=== PATIENT | female | born 1970 | race Caucasian/White ===

== ENCOUNTER 2021-02-25 13:44 | Outpatient (CLI) | payer BC, SELFPAY ==
--- NOTE | 2021-02-25 | ECHO_ITS ---
Patient Info Name: Jana Newsome Age: 50 years : 1970 Gender: Female Ht: 67 in Wt: 265 lbs BSA: 2.44 m2 HR: 81 bpm BP: 170 / 103 mmHg Exam Date: 02/25/2021 2:23 PM Exam Location: [facility] Patient Status: Outpatient Admit Date: 02/25/2021 Staff Ordering Physician: Tam Nava MD [employer] Machine Feeder: Jhonny Benoit, ALPHONSE, RT Attending Provider: Tam Nava MD Referring Physician: Elijah PARK; Exam Type: CA echo doppler color flow Study Info Indications Z12.31 - Encounter for screening mammogram for malignant neoplasm of breast Complete two-dimensional, color flow and Doppler transthoracic echocardiogram is performed. Strain analysis performed. Summary 1. Complete two-dimensional, color flow and Doppler transthoracic echocardiogram is performed. 2. Normal left ventricular size with mild concentric hypertrophy. There is good systolic function of all segments with an ejection fraction of 60% and no segmental wall motion abnormalities. Borderline diastolic dysfunction is present. The global longitudinal strain is-17% which is also borderline. 3. No significant valve disease. 4. Normal sinus rhythm. Left Ventricle Left ventricular chamber dimension is normal. Left ventricular systolic function is normal, estimated at 60-65%. There is mildly increased left ventricular wall thickness. Left ventricular septal wall motion is normal. The left ventricular diastolic function is normal. Global longitudinal strain is mildly elevated at Empty. Right Ventricle Right ventricular chamber dimension is normal. Right ventricular systolic function is normal. Left Atria Left atrial chamber dimension is normal. Right Atria Right atrial chamber dimension is normal. Aortic Valve The aortic valve is trileaflet. There is no aortic valve sclerosis. There is no aortic valve stenosis. There is no aortic valve regurgitation. Pulmonic Valve The pulmonic valve is normal. There is no pulmonic valve stenosis. There is no pulmonic regurgitation. Mitral Valve The mitral valve has normal leaflets. There is no mitral valve stenosis. There is no mitral valve regurgitation. Tricuspid Valve The tricuspid valve leaflets are normal. There is no significant tricuspid valve stenosis. There is no tricuspid valve regurgitation. No pulmonary hypertension, estimated pulmonary arterial systolic pressure is Empty. Pericardium/Pleural The pericardium appears normal. There is no pericardial effusion. Inferior Vena Cava Normal inferior vena cava with >50% collapse upon inspiration consistent with Empty right atrial pressure, Empty. Aorta The aortic root size at the sinus of Valsalva is normal. The prox ascending aorta size is normal. Left Ventricular Outflow Tract Name Value Normal LVOT 2D LVOT Diameter 2.0 cm LVOT Doppler LVOT Peak Gradient 7 mmHg LVOT Mean Gradient 4 mmHg LVOT VTI 24 cm LVOT VTI/AV VTI Ratio 0.8 LVOT Stroke Volume 75 ml
== END 2021-02-25 13:45 | disposition home or self-care (01) ==
PROVIDERS: Visit Provider Internal Medicine Hematology & Oncology
DX: C50.912 Malignant neoplasm of unspecified site of left female breast (principal); Z17.1 Estrogen receptor negative status [ER-]
CPT/HCPCS: 93306

== ENCOUNTER 2021-07-15 09:34 | Outpatient (CLI) | payer BC, SELFPAY ==
[2021-07-15 09:56] LABS: Basophils Absolute Auto 0.1 K/mm3 (0.0-0.1); Basophils Percent Auto 0.6 % (0.2-1.2); Eosinophils Absolute Auto 0.7 K/mm3 (0-0.3); Eosinophils Percent Auto 7.1 % (0-4.4); Hemoglobin 11.9 g/dL (12.0-15.0); Immature Granulocyte Absolute 0.05 K/mm3 (0.00-0.031); Immature Granulocyte Percent A 0.5 % (0-0.5); Lymphocytes Absolute Auto 1.31 K/mm3 (0.9-3.2); Lymphocytes Percent Auto 13.6 % (18.3-44.2); Mean Corpuscular HGB Conc 32.2 g/dl (32-36); Mean Corpuscular Hemoglobin 30.2 pg (26-34); Mean Corpuscular Volume 93.9 fl (80-100); Mean Platelet Volume 9.8 fl (7.4-10.4); Monocytes Absolute Auto 0.7 K/mm3 (0.1-0.6); Monocytes Percent Auto 7.1 % (2.6-8.5); Neutrophils Absolute Auto 6.8 K/mm3 (1.3-6.7); Neutrophils Percent Auto 71.1 % (45.5-73.1); Platelet Count Result 317 k/mm3 (150-375); Red Blood Count 3.94 M/mm3 (4.2-5.4); Red Cell Distribution Width 14.5 % (11.5-14.5); White Blood Count 9.6 K/mm3 (4.5-10.0)
[2021-07-15 10:17] LABS: Alanine Aminotransferase 35 U/L (6-35); Alkaline Phosphatase 95 U/L (38-126); Anion Gap 4 mmol/L (8-16); Aspartate Amino Transferase 34 U/L (14-36); Bilirubin,Total 0.2 mg/dL (0.2-1.3); Blood Urea Nitrogen 14 mg/dL (7-17); Calcium 9.2 mg/dL (8.4-10.2); Carbon Dioxide 25 mmol/L (22-30); Chloride 105 mmol/L (98-107); Estimated Glomerular Filt Rate > 60; Glucose 114 mg/dL (65-110); Potassium 4.2 mmol/L (3.4-5.0); Sodium 134 mmol/L (137-145)
== END 2021-07-15 09:35 | disposition home or self-care (01) ==
DX: C50.312 Malignant neoplasm of lower-inner quadrant of left female breast (principal); Z17.1 Estrogen receptor negative status [ER-]
CPT/HCPCS: 36415; 80053; 85025

== ENCOUNTER 2021-08-21 10:36 | Emergency (ER) | payer BC, SELFPAY ==
[2021-08-21 10:45] VITALS: BP 134/73; PULSE 115; RESP 20; TEMP 37.3; O2SAT 99
--- NOTE | 2021-08-21 11:40 | ED.URI ---
HPI - URI/Sore Throat General Chief Complaint: Upper Respiratory Infection Stated Complaint: SORE THROAT/COUGH Time Seen by Provider: 08/21/21 11:34 Source: patient Mode of arrival: ambulatory Limitations: no limitations History of Present Illness HPI Narrative: Patient presents today complaining of a 2-day history of sore throat with dry cough. Denies congestion, rhinorrhea, fever, shortness of breath, or any additional symptoms. She has been taking Benadryl without relief. She just finished chemotherapy for breast cancer and starts radiation treatments within the next 2 weeks. She has been vaccinated against COVID-19. She has not taken a home test. Related Data Home Medications Medication Instructions Recorded Confirmed albuterol 90 mcg/actuation aerosol 90 mcg inhalation DAILY PRN 02/14/21 06/19/21 inhaler Shortness Of Breath lamotrigine 150 mg tablet 150 mg PO HS 02/14/21 06/19/21 bupropion HCl 150 mg 24 hr tablet, 150 mg PO QAM 03/06/21 06/19/21 extended release (Wellbutrin XL) bupropion HCl 300 mg 24 hr tablet, 300 mg PO QAM 03/06/21 06/19/21 extended release (Wellbutrin XL) cholecalciferol (vitamin D3) 25 50 mcg PO BID 03/06/21 06/19/21 mcg (1,000 unit) capsule lithium carbonate 300 mg tablet 300 mg PO BID 03/06/21 06/19/21 loperamide 2 mg capsule 2 mg PO Q4H PRN diarrhea 03/06/21 06/19/21 melatonin 5 mg tablet 5 mg PO HS PRN Insomnia 03/06/21 06/19/21 multivitamin 1 tablet PO DAILY 03/06/21 06/19/21 omega-3 fatty acids 500 mg capsule 1,500 mg PO DAILY 03/06/21 06/19/21 ondansetron HCl 4 mg tablet 4 mg PO Q6H 03/06/21 06/19/21 vitamin B6-vitamin E-magnesium 1 tablet PO DAILY 03/06/21 06/19/21 tablet ferrous sulfate 325 mg (65 mg 325 mg PO DAILY 03/20/21 06/19/21 iron) tablet vitamin B12 0.5 mg-folic acid 1 mg 1 tablet PO DAILY 03/20/21 06/19/21 tablet dexamethasone 4 mg tablet 4 mg PO BID 04/17/21 06/19/21 Allergies Allergy/AdvReac Type Severity Reaction Status Date / Time No Known Allergies Allergy Verified 06/05/21 12:13 Review of Systems Review of Systems: CONSTITUTIONAL: Denies body aches, fever, chills, or sweats. EYES: Denies visual changes, redness, or discharge. ENT: Denies rhinorrhea, congestion, or otalgia.+ Sore throat CARDIOVASCULAR: Denies chest pain, palpitations, or edema. RESPIRATORY: Denies dyspnea.+ Cough GASTROINTESTINAL: Denies abdominal pain, nausea, vomiting, or diarrhea. GENITOURINARY: Denies dysuria or hematuria. SKIN: Denies rash, itching, or wounds. MUSCULOSKELETAL: Denies back pain, joint pain, or myalgia. NEUROLOGIC: Denies headache, numbness, tingling, or weakness. PSYCH: Denies depression or anxiety. [facility] Past Medical History Medical History (Updated 08/21/21 @ 12:18 by Adeline Francis, [facility], ) Anxiety Breast cancer Insomnia Obesity Social History Social History Smoking packs per day: 0.5 Smoking cigarettes per day: 10.0 Years smoked: 35 Smoking pack-years: 17.50 Smoking status: Current some day smoker Tobacco type: cigarettes Second hand tobacco smoke exposure: Yes Spiritual care concerns: No Comments At time of signature, I have reviewed and agree with nursing past medical, surgical, social and family history unless otherwise noted. Please see nursing chart for further information. There is no relevant family history pertinent to the presenting complaint Exam Narrative: GENERAL: Well-appearing, well-nourished, and in no acute distress. HEAD: Normocephalic, atraumatic. EYES: EOMI. No redness or drainage. Conjunctivae normal. ENT: Mucous membranes pink and moist. Nares clear. No rhinorrhea. TMs normal bilaterally. Throat normal. Uvula midline. NECK: Normal AROM. Supple. No lymphadenopathy. CHEST: No respiratory distress. Clear to auscultation. Harsh cough noted. HEART: Regular rate and rhythm. No murmur appreciated. Normal peripheral pulses. EXTREMITIES: Normal range of motion. No edema. SKIN: Warm, dry, no
== END 2021-08-21 12:28 | disposition home or self-care (01) ==
PROVIDERS: Emergency Provider Nurse Practitioner
DX: J06.9 Acute upper respiratory infection, unspecified (principal); Z20.822 Contact with and (suspected) exposure to COVID-19; F17.210 Nicotine dependence, cigarettes, uncomplicated; F41.9 Anxiety disorder, unspecified; Z85.3 Personal history of malignant neoplasm of breast; E66.9 Obesity, unspecified; G47.00 Insomnia, unspecified
CPT/HCPCS: 87081; 87426; 87880; 99213; C9803; G0463

== ENCOUNTER 2022-06-17 10:33 | Emergency (ER) | payer BC, SELFPAY ==
--- NOTE | ~2022-06-17 | XR_ITS ---
XR chest 2V 06/17/2022 11:00 Indication: 2 weeks of cough. History of breast cancer. Procedure: 2 view chest Comparison: No prior studies for comparison. Findings: Portacatheter tip in the SVC. No focal air space disease, pulmonary edema, pleural effusion or suspected pneumothorax. No acute osseous abnormality. Impression: 1: No acute cardiopulmonary disease. Reviewed, dictated and finalized at location L. Impression: 1: No acute cardiopulmonary disease.
[2022-06-17 10:44] VITALS: BP 147/94; PULSE 99; RESP 16; TEMP 36.8; O2SAT 99
--- NOTE | 2022-06-17 10:44 | ED.URI ---
HPI - URI/Sore Throat General Chief Complaint: Upper Respiratory Infection Stated Complaint: cough Time Seen by Provider: 06/17/22 10:45 Source: patient and RN notes reviewed Mode of arrival: ambulatory Limitations: no limitations History of Present Illness HPI Narrative: 51-year-old female presents concern for 2 week history of dry cough. Patient has history of breast cancer. She currently takes tamoxifen. She denies nasal congestion, rhinorrhea, sore throat, fever, aches, chills, sweats. She reports fatigue. She denies taking any medications for her symptoms MD elicited complaint: cough Related Data Home Medications Medication Instructions Recorded Confirmed lamotrigine 150 mg tablet 150 mg PO HS 02/14/21 06/17/22 bupropion HCl 150 mg 24 hr tablet, 150 mg PO QAM 03/06/21 06/17/22 extended release (Wellbutrin XL) cholecalciferol (vitamin D3) 25 50 mcg PO BID 03/06/21 06/17/22 mcg (1,000 unit) capsule lithium carbonate 300 mg tablet 300 mg PO BID 03/06/21 06/17/22 melatonin 5 mg tablet 5 mg PO HS PRN Insomnia 03/06/21 06/17/22 multivitamin 1 tablet PO DAILY 03/06/21 06/17/22 omega-3 fatty acids 500 mg capsule 1,500 mg PO DAILY 03/06/21 06/17/22 vitamin B6-vitamin E-magnesium 1 tablet PO DAILY 03/06/21 06/17/22 tablet ferrous sulfate 325 mg (65 mg 325 mg PO DAILY 03/20/21 06/17/22 iron) tablet vitamin B12 0.5 mg-folic acid 1 mg 1 tablet PO DAILY 03/20/21 06/17/22 tablet tamoxifen 20 mg tablet 20 mg PO DAILY 06/17/22 06/17/22 vortioxetine 5 mg tablet 5 mg PO DIRECTED 06/17/22 06/17/22 (Trintellix) Allergies Allergy/AdvReac Type Severity Reaction Status Date / Time No Known Allergies Allergy Verified 06/17/22 10:50 Review of Systems Review of Systems: CONSTITUTIONAL: Denies malaise, chills, sweats, or fever. EYES: Denies visual changes, redness, or discharge. ENT: Denies rhinorrhea, congestion, sinus pain, otalgia and sore throat. CARDIOVASCULAR: Denies chest pain, palpitations, or edema. RESPIRATORY: Reports cough. Denies dyspnea. GASTROINTESTINAL: Denies abdominal pain, nausea, vomiting, diarrhea SKIN: Denies rash or itching. MUSCULOSKELETAL: Denies myalgia. NEUROLOGIC: Denies headache. All systems reviewed & are unremarkable except as noted in HPI and below PMFSH Past Medical History Medical History (Updated 06/17/22 @ 11:11 by Christine Merrill NP) Anxiety Breast cancer Insomnia Obesity Social History Social History Smoking packs per day: 0.5 Smoking cigarettes per day: 10.0 Years smoked: 35 Smoking pack-years: 17.50 Smoking status: Current some day smoker Tobacco type: cigarettes Second hand tobacco smoke exposure: Yes Spiritual care concerns: No Comments At time of signature, agree with nursing past medical, surgical, social and family history. There is no relevant family history pertinent to the presenting complaint Exam Narrative: GENERAL: Well-appearing, well-nourished, and in no acute distress. HEAD: Normocephalic EYES: PERRLA, conjunctivae clear ENT: Nares clear. Mucous membranes moist. TM pearly ramirez with sharp light reflex bilaterally; no tragal tenderness. Oropharynx not erythematous without lesions. Tonsils not enlarged and without exudate, no drooling, no hoarseness, no trismus, uvula midline. NECK: Supple. No lymphadenopathy CHEST: Clear to auscultation, breath sounds equal. No wheezing, rhonchi, rales, or stridor. No respiratory distress, speaks in full sentences. HEART: Regular rate and rhythm. No murmur heard. SKIN: Warm, dry, no rash. NEURO: Alert and oriented x3. PSYCH: Normal mood and affect Course Course Emergency Course: Patient is aware of diagnosis, understands and agrees to treatment plan. Anticipatory guidance given. Patient agrees to follow-up as directed and is aware of reasons to seek care at the emergency department. Portions of this record may have been created with voice recognition software Level of Care: [facility]
== END 2022-06-17 11:15 | disposition home or self-care (01) ==
PROVIDERS: Emergency Provider Nurse Practitioner
DX: J40 Bronchitis, not specified as acute or chronic (principal); F17.210 Nicotine dependence, cigarettes, uncomplicated; Z85.3 Personal history of malignant neoplasm of breast; F41.9 Anxiety disorder, unspecified; E66.9 Obesity, unspecified; Z68.41 Body mass index [BMI] 40.0-44.9, adult
CPT/HCPCS: 71046; 99213; G0463

== ENCOUNTER 2023-02-26 06:20 | Emergency (ER) | payer BC, SELFPAY ==
[2023-02-26] VITALS (12 sets, daily range): BP systolic 145–181; BP diastolic 67–96; PULSE 78–116; RESP 13–22; TEMP 36.6–36.9; O2SAT 96–100
--- NOTE | ~2023-02-26 | US_ITS ---
EXAMINATION: US abdomen limited DATE: 02/26/2023 08:45 INDICATION: Pancreatitis TECHNIQUE: Multiple grayscale and Doppler ultrasound images of the abdomen were obtained. COMPARISON: CT from today FINDINGS: Bowel gas obscures visualization of the pancreas. The visualized portions of the pancreas a re unremarkable. The pancreatic head mass seen on today's CT is not well demonstrated. There is a 9 m m hypoechoic lesion of the liver and the right hepatic lobe. The liver is otherwise normal with boo l echogenicity and echotexture. No surface nodularity. Normal hepatopetal flow in the main portal vei n. The gallbladder is normal with no abnormal wall thickening, pericholecystic fluid or stones. The n ormal common bile duct measures 5 mm. There was no sonographic Benoit sign. IMPRESSION: 1. Normal sonographic study of the gallbladder. 2. 5 mm hypoechoic lesion of the right hepatic lobe, possibly metastatic disease. Reviewed, dictated and finalized at location D. R OPT[employer] SUPERVISOR IMPRESSION: 1. Normal sonographic study of the gallbladder. 2. 5 mm hypoechoic lesion of the right hepatic lobe, possibly metastatic diseas e.
--- NOTE | ~2023-02-26 | CT_ITS ---
CT of the Abdomen and Pelvis: Indication: Constipated, metastatic breast cancer Technique: 2.5 mm axial scans were obtained through the abdomen and pelvis following intravenous adm inistration of 100 cc of Omnipaque 350. Dose reduction technique was used on this scan by utilizing a utomated exposure control and iterative reconstruction technique. The dose-length product (DLP) was 1 522.34 mGy-cm. Findings: Scans through the lung bases demonstrate irregular 2.3 cm right basilar pulmonary nodule ( axial image 18). There is a separate probable sessile pleural-based mass the right lung base measurin g 2.7 x 1.1 cm (axial image 17).. The liver, spleen, gallbladder, right adrenal gland, and left kidney are within normal limits. There is a 2 cm left adrenal nodule, indeterminate. There are 2 hypodense, noncystic right renal lesions (a xial image 90, 80), indeterminate. There is a 3.4 cm irregular hypodense mass the pancreatic head (ax ial image 80). There is peripancreatic fluid and inflammatory stranding, consistent with acute pancre atitis. No evidence of aortic aneurysm. No lymphadenopathy. No bowel obstruction or bowel wall thickening. There is no evidence to suggest acute appendicitis. Images through the pelvis were performed. Urinary bladder unremarkable. No pelvic mass seen. No pelvi c ascites. Impression: 3.4 cm hypodense mass at the pancreatic head. Diagnostic considerations include pancreatic adenocarci noma versus possibly metastatic lesion. Acute pancreatitis. 2 cm left adrenal nodule, indeterminate, but suspicious for metastatic lesion given history and afore mentioned findings. 2.3 cm right basilar pulmonary nodule and additional 2.7 x 1.1 cm pleural-based nodule at the right l juanita base. These are compatible with metastatic disease. Primary source somewhat unclear given reporte d history of metastatic breast cancer as well as a possible primary pancreatic lesion on this exam. C orrelation with any prior exams and history would be advised. Consider tissue sampling to establish a histologic diagnosis. 2 noncystic hypodense right renal lesions. Metastatic lesions are consideration. Reviewed, dictated and finalized at location M. AL PHOTOGRAPHER Impression: 3.4 cm hypodense mass at the pancreatic head. Diagnostic considerations include pancreatic adenocarcinoma versus possibly metastatic lesion. Acute pancreatitis. 2 cm left adrenal nodule, indeterminate, but suspicious for metastatic lesion g iven history and aforementioned findings. 2.3 cm right basilar pulmonary nodule and additional 2.7 x 1.1 cm pleural-based nodule at the right lung base. These are compatible with metastatic disease. P rimary source somewhat unclear given reported history of metastatic breast canc er as well as a possible primary pancreatic lesion on this exam. Correlation wi th any prior exams and history would be advised. Consider tissue sampling to es tablish a histologic diagnosis. 2 noncystic hypodense right renal lesions. Metastatic lesions are consideration .
[2023-02-26 07:03] LABS: Basophils Percent Auto 0.1 % (0.2-1.2); Eosinophils Absolute Auto 0.1 K/mm3 (0-0.3); Eosinophils Percent Auto 0.5 % (0-4.4); Hematocrit 40.9 % (37.0-47.0); Hemoglobin 13.8 g/dL (12.0-15.0); Immature Granulocyte Absolute 0.16 K/mm3 (0.00-0.031); Immature Granulocyte Percent A 0.7 % (0-0.5); Lymphocytes Absolute Auto 2.85 K/mm3 (0.9-3.2); Lymphocytes Percent Auto 11.9 % (18.3-44.2); Mean Corpuscular HGB Conc 33.7 g/dl (32-36); Mean Corpuscular Hemoglobin 29.7 pg (26-34); Mean Corpuscular Volume 88.1 fl (80-100); Mean Platelet Volume 9.8 fl (7.4-10.4); Monocytes Absolute Auto 1.9 K/mm3 (0.1-0.6); Monocytes Percent Auto 7.8 % (2.6-8.5); Neutrophils Absolute Auto 18.9 K/mm3 (1.3-6.7); Platelet Count Result 348 k/mm3 (150-375); Red Blood Count 4.64 M/mm3 (4.2-5.4); White Blood Count 23.9 K/mm3 (4.5-10.0)
--- NOTE | 2023-02-26 07:07 | ED.NAVMDI ---
HPI - Nausea/Vomiting/Diarrhea General Chief complaint: Nausea/Vomiting/Diarrhea Stated complaint: constipation Time Seen by Provider: 02/26/23 06:58 Source: patient and family ( Mother) Limitations: no limitations History of Present Illness HPI Narrative: this is a 52-year-old female with metastatic breast cancer currently undergoing radiation therapy to her brain who presents with constipation and nausea. Her nausea became more intense last evening and has persisted despite the use of Zofran and famotidine. It was also accompanied with vomiting. She denies milton abdominal pain. She has no sensation or feeling like she needs to have a bowel movement. She denies passing any flatus. She continues to have appetite however. Her radiation treatments have been daily including her last treatment yesterday she has undergone a total of 5 in the past week when she was diagnosed with recurrence of her breast cancer which was previously thought to be in remission but was diagnosed to be reemerge and with metastases while she was hospitalized at [facility] recently. she does have a prescription for oxycodone p.r.n. but she has only taken this 2 or 3 times in the past week. She is on a bowel regimen that includes senna and Metamucil and other stool softeners. She even trialed a rectal suppository overnight but was unable to produce a bowel movement. LBM last Thursday. Related Data Home Medications Medication Instructions Recorded Confirmed lamotrigine 150 mg tablet 150 mg PO HS 02/14/21 06/17/22 bupropion HCl 150 mg 24 hr tablet, 150 mg PO QAM 03/06/21 06/17/22 extended release (Wellbutrin XL) cholecalciferol (vitamin D3) 25 50 mcg PO BID 03/06/21 06/17/22 mcg (1,000 unit) capsule lithium carbonate 300 mg tablet 300 mg PO BID 03/06/21 06/17/22 melatonin 5 mg tablet 5 mg PO HS PRN Insomnia 03/06/21 06/17/22 multivitamin 1 tablet PO DAILY 03/06/21 06/17/22 omega-3 fatty acids 500 mg capsule 1,500 mg PO DAILY 03/06/21 06/17/22 vitamin B6-vitamin E-magnesium 1 tablet PO DAILY 03/06/21 06/17/22 tablet ferrous sulfate 325 mg (65 mg 325 mg PO DAILY 03/20/21 06/17/22 iron) tablet vitamin B12 0.5 mg-folic acid 1 mg 1 tablet PO DAILY 03/20/21 06/17/22 tablet tamoxifen 20 mg tablet 20 mg PO DAILY 06/17/22 06/17/22 vortioxetine 5 mg tablet 5 mg PO DIRECTED 06/17/22 06/17/22 (Trintellix) Allergies Allergy/AdvReac Type Severity Reaction Status Date / Time No Known Allergies Allergy Verified 06/17/22 10:50 [facility] Past Medical History Medical History (Updated 02/27/23 @ 00:00 by Background Daemon) Anxiety Breast cancer Insomnia Metastasis to brain Obesity Social History Social History Smoking packs per day: 0.5 Smoking cigarettes per day: 10.0 Years smoked: 35 Smoking pack-years: 17.50 Smoking status: Current some day smoker Tobacco type: cigarettes Second hand tobacco smoke exposure: Yes Spiritual care concerns: No Exam Narrative: GENERAL: Well-appearing, well-nourished, and in no acute distress. HEAD: Normocephalic, atraumatic. EYES: Non injected, non icteric ENT: Nares clear, no rhinorrhea or epistaxis. Tacky mucous membranes. NECK: Supple. CHEST: Speaks in full sentences. No respiratory distress. HEART: Tachycardic rate and rhythm. . ABDOMEN: Obese, distended but Soft. Slight tenderness to palpation at the epigastrium without rigidity or guarding. Striae over abdomen. Ecchymosis in RLQ (notes she has been receiving subQ injection unknown what) EXTREMITIES: Normal range of motion. No edema. SKIN: Warm, dry, no rash. NEURO: No focal deficits. Alert and oriented x3. PSYCH: Normal mood and affect. Course Vital Signs Vital signs: Vital Signs Temperature 98.4 F 02/26/23 06:25 Pulse Rate 113 H 02/26/23 06:25 Respiratory Rate 20 02/26/23 06:25 Blood Pressure 148/89 H 02/26/23 06:25 Pulse Oximetry 98 02/26/23 06:25 Oxygen Delivery Room Air 02/26/23 06:25
[2023-02-26 07:13] LABS: Alanine Aminotransferase 23 U/L (6-35); Albumin Level 3.9 g/dL (3.5-5.1); Alkaline Phosphatase 114 U/L (38-126); Anion Gap 10 mmol/L (8-16); Aspartate Amino Transferase 19 U/L (14-36); Bilirubin,Total 0.5 mg/dL (0.2-1.3); Blood Urea Nitrogen 19 mg/dL (7-17); Calcium 9.3 mg/dL (8.4-10.2); Carbon Dioxide 25 mmol/L (22-30); Chloride 99 mmol/L (98-107); Estimated CRCL calculation 96 ml/min; Estimated Glomerular Filt Rate > 60; Glucose 141 mg/dL (65-110); Sodium 134 mmol/L (137-145)
[2023-02-26] MEDS: LACTATED RINGERS 1,000 ML 999 ML IV CONT (07:18)
[2023-02-26] MEDS: SODIUM CHLORIDE 0.9% IV 1,000 ML 999 ML IV CONT (07:19)
[2023-02-26] MEDS: PROCHLORPERAZINE EDISYLATE 10 MG/2 ML VIAL IV PUSH (07:20)
[2023-02-26 07:46] LABS: Lipase 5345 U/L (23-300)
[2023-02-26 07:55] LABS: Appearance Urine Clear (Clear); Bacteria Urine None Seen /hpf; Bilirubin Urine Negative (Negative); Blood Urine Negative (Negative); Color Urine Yellow (Yellow); Glucose Urine UA Negative (Negative); Ketones Urine Negative (Negative); Leukocyte Esterase Ur Negative LEU/UL (Negative); Nitrate Urine Negative (Negative); Protein Urine 1+ mg/dL (Negative); RBC Urine 0-2 /hpf (0-2); Specific Grav Ur 1.026 (1.001-1.035); Squamous Epithelial Cell Urine Occasional /hpf (Few); Urobilinogen Urine 0.2 mg/dL (<2.0); WBC Urine 0-5 /hpf
[2023-02-26 08:00] LABS: Add Urine Microscopic? YES
--- NOTE | 2023-02-26 08:16 | PC.NURSE ---
Pt in CT scan via w/c at this time. Mother remains at bedside.
[2023-02-26] MEDS: HALOPERIDOL LACTATE 5 MG/ML VIAL 2.5 MG IV PUSH (08:55)
[2023-02-26] MEDS: BISACODYL 10 MG SUPPOSITORY RECTAL (11:04)
[2023-02-26] MEDS: LACTATED RINGERS 1,000 ML 150 ML IV CONT (13:10)
== END 2023-02-26 16:51 | disposition short-term general hospital (02) ==
LOC: ANHED 07:51
PROVIDERS: Student in an Organized Health Care Education/Training Program; Emergency Provider Student in an Organized Health Care Education/Training Program
DX: K85.90 Acute pancreatitis without necrosis or infection, unspecified (principal); E87.1 Hypo-osmolality and hyponatremia; D72.829 Elevated white blood cell count, unspecified; R73.9 Hyperglycemia, unspecified; C50.919 Malignant neoplasm of unspecified site of unspecified female breast; C79.31 Secondary malignant neoplasm of brain; N28.9 Disorder of kidney and ureter, unspecified; K86.89 Other specified diseases of pancreas; R91.8 Other nonspecific abnormal finding of lung field
CPT/HCPCS: 36415; 74177; 76705; 80053; 81001; 83690; 85025; 96361; 96374; 96375; 99284; A9270; J0780; J1630; J7030; J7120; Q9967

== ENCOUNTER 2023-03-12 10:07 | Outpatient (CLI) | payer BC, SELFPAY ==
[2023-03-12 10:24] LABS: Kit Draw Collected
== END 2023-03-12 10:08 | disposition home or self-care (01) ==
LOC: ANHLAB 10:09
PROVIDERS: Visit Provider Internal Medicine Hematology & Oncology
DX: C50.912 Malignant neoplasm of unspecified site of left female breast (principal); Z17.1 Estrogen receptor negative status [ER-]
CPT/HCPCS: 36415

== ENCOUNTER 2023-03-23 01:13 | Day surgery (SDC) | payer BC, SELFPAY ==
[2023-03-17 12:38] VITALS: BMI 42.9
--- NOTE | 2023-03-17 12:47 | PC.NURSE ---
Report to the Outpatient Waiting Room, entrance under the green pavilion located off [facility], at time 0900 on date 03/23/23. Planned Procedure Time: 1100. Time changes happen often and if your time is changed the preop area will call you the afternoon before. - You and your visitor will be asked to self-screen and do not enter if you have any COVID symptoms. - A mask is optional within the hospital at this time. Patients may have clear liquids (water, carbonated beverages, clear teas, apple juice) until 3 hours prior to surgery with a maximum of 20 ounces. - No food from midnight until time of surgery Take the following medications with a SIP of water the morning of surgery: LORAZEPAM, DEXAMETHASONE, METOPROLOL, LITHIUM, AMLODIPINE, LAMOTRIGINE, TRINTELLIX DO NOT STOP ANY OF YOUR OTHER PRESCRIPTION MEDICATIONS PRIOR TO SURGERY ?EXCEPT THE FOLLOWING Medications to discontinue per physician: N/A Date to take last dose: N/A Please no make-up, nail french, hairspray, perfume, deodorant, or body powder the day of surgery. No jewelry (including any body piercings) or valuables the day of surgery, leave them at home. Please take a shower or bath the night before, or the morning of, surgery with an antibacterial soap. Wear comfortable, loose fitting clothing. - Jewelry must be removed prior to entering the operating room. Rings and piercings that are not removed may be cut off. - The hospital will not accept responsibility for valuables. - Please leave all valuables, including medications, at home the day of surgery. If you are going home after surgery, a licensed cattle driver must drive you home. - NO public transportation without another adult if you receive anesthesia. - We recommend that an adult stay with you for 24 hours following discharge. - We also recommend that you do not drive, make important decision, drink alcoholic beverages, or take any drugs that were not prescribed by your health care provider for at least 24 hours after your discharge time. Follow any additional instructions given to you from your surgeon. If you or anyone in your household have experienced Covid symptoms in the past week, please notify your surgeon or the nurse liaison at the phone number below for possible testing. Telephone instructions given to PT & MOTHER and asked if any additional questions and then verbalized understanding. Patient advised to call surgeon office or pre surgery nurse liaison [phone] if any additional questions.
[2023-03-23] VITALS (7 sets, daily range): BP systolic 128–157; BP diastolic 73–91; PULSE 93–105; RESP 12–20; TEMP 35.8–36.1; O2SAT 97–100
--- NOTE | ~2023-03-23 | XR_ITS ---
XR chest port-a-cath/central DATE: 03/23/2023 12:22 INDICATION: Port-A-Cath insertion TECHNIQUE: Portable AP chest on 03/23/2023 1221 hours COMPARISON: June 17, 2022 2 view chest FINDINGS: Right subclavian Port-A-Cath catheter tip overlying upper right atrium. Surgical clips overlie left breast and left axillary area. Heart size is likely within normal range considering magnification associated with AP projection. No hilar or mediastinal enlargement. There is moderate elevation the right leaf of the diaphragm. The lungs appear clear of infiltrate or consolidation. No pneumothorax is evident. IMPRESSION: Right subclavian Port-A-Cath catheter tip overlies upper right atrium Moderate elevation right diaphragm No active cardiopulmonary disease is evident Reviewed, dictated and finalized at [facility]. Reviewed, dictated and finalized at location [facility]. N [facility] [employer] IMPRESSION: Right subclavian Port-A-Cath catheter tip overlies upper right atri um Moderate elevation right diaphragm No active cardiopulmonary disease is evident
--- NOTE | ~2023-03-23 | XR_ITS ---
EXAMINATION: XR fl guide central line place INDICATION: Port-A-Cath insertion TECHNIQUE: Three intraoperative fluoroscopic images are submitted for review. Total fluoroscopic time was 15.0 seconds COMPARISON: None available FINDINGS: Fluoroscopic images demonstrate a right subclavian Port-A-Cath insertion ending at the supe rior cavoatrial junction. Please refer to procedure note for full details. IMPRESSION: 1. Please refer to procedure note for full details. Reviewed, dictated and finalized at location [facility]. STRIAL MACHINE OPERATOR
--- NOTE | 2023-03-23 08:47 | PM.IMHP ---
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 She previously underwent left breast lumpectomy and rad tx to left breast. She recently underwent 20 rad tx to her brain mets. She has some chronic nausea due to her metastatic dz and rad tx. She is to undergo chemotherapy tx and now presents for placement of another portacatheter for chemo tx. She had prior right side port which was removed about 8 months ago. No problems with that old port. Review of Systems Review of Systems: The remainder of the review of systems to include constitutional, HEENT, cardiovascular, respiratory, GI, , integumentary, musculoskeletal, endocrine, immunologic, hematologic, psychiatric, and neurologic are all negative except for which is mentioned above in the HPI. [facility] Past Medical History Medical History Anxiety Breast cancer Insomnia Metastasis to brain Obesity Social History Social History Smoking packs per day: 0.5 Smoking cigarettes per day: 10.0 Years smoked: 30 Smoking pack-years: 15.00 Smoking status: Former smoker Tobacco type: cigarettes Second hand tobacco smoke exposure: Yes Smoking end date: 11/07/22 Alcohol intake: never Substance use: never Substance use type: does not use Living arrangements: with family Spiritual care concerns: No Meds Home Medications and Allergies Home Medications Medication Instructions Recorded Confirmed Type lamotrigine 150 mg tablet 150 mg PO HS 02/14/21 03/17/23 History tamoxifen 20 mg tablet 20 mg PO DAILY 06/17/22 03/17/23 History amlodipine 10 mg tablet 10 mg PO DAILY 03/17/23 03/17/23 History dexamethasone 1 mg tablet 2 mg PO BID 03/17/23 03/17/23 History famotidine 20 mg tablet 20 mg PO BID 03/17/23 03/17/23 History lamotrigine 25 mg tablet 50 mg PO DAILY 03/17/23 03/17/23 History lithium carbonate 150 mg capsule 150 mg PO BID 03/17/23 03/17/23 History lorazepam 0.5 mg tablet 0.5 mg PO TID 03/17/23 03/17/23 History losartan 50 mg tablet 50 mg PO DAILY 03/17/23 03/17/23 History melatonin 10 mg tablet 10 mg PO HS 03/17/23 03/17/23 History metoprolol tartrate 25 mg tablet 25 mg PO BID 03/17/23 03/17/23 History ondansetron 4 mg disintegrating 8 mg translingual Q8H 03/17/23 03/20/23 History tablet sennosides 8.6 mg-docusate sodium 1 tab-cap PO BID 03/17/23 03/17/23 History 50 mg tablet (Senna-S) vortioxetine 10 mg tablet 10 mg PO DAILY 03/17/23 03/17/23 History (Trintellix) scopolamine base 1 mg over 3 days 1 patch transdermal Q3D 03/20/23 03/20/23 History transdermal patch Allergies Allergy/AdvReac Type Severity Reaction Status Date / Time No Known Allergies Allergy Verified 03/23/23 09:10 Exam Const: General: comfortable and no acute distress HENMT: Ears: TM's normal bilaterally Face/Nose/Sinus: Normal nares present Mouth: Yes moist mucous membranes Eyes: General: appearance normal, both eyes and all related structures Sclera: sclerae normal Pupils: Equal, round and reactive pupils present EOM: EOMs intact bilaterally Neck: Neck: supple and no JVD Chest: Other: Old scar right upper anterior chest from old port. No redness or drainage. Resp: Effort & Inspection: normal respiratory effort Auscultation: clear to auscultation bilaterally Cardio: Rate: regular rate Rhythm: regular rhythm GI: GI Palp: Yes Soft to palpation, No Firmness to palpation present (GI), No Tenderness to palpation present (GI), No Guarding due to palpation present (GI) and No Hernia present Skin: General skin exam: normal color and no rashes or lesions noted Neuro: General: gait normal Speech: normal speech Motor exam (neuro): 5/5 motor strength present throughout Sensory Exam: nor
[2023-03-23 10:03] LABS: Lithium 0.4 mmol/L (0.6-1.2)
--- NOTE | 2023-03-23 10:04 | WPDANESEPPF ---
Anes - Initial Pre Proc Eval Procedure: Operation Date: 03/23/23 11:00 Proposed Procedures p Insertion Berta Cath - Chance Machuca MD Date/Time: 03/23/23 10:04 Surgeon: Chance Machuca MD Pre Op Diagnosis: malignant neoplasm left breast, brain metastasis Patient Data Age: 52 Gender: F Height: 1.68 m Weight: 115 kg Last Vital Signs Temp 96.5 F L 03/23/23 09:57 Pulse 105 H 03/23/23 09:57 Resp 20 03/23/23 09:57 BP 128/77 03/23/23 09:57 Pulse Ox 97 03/23/23 09:57 O2 Del Method Room Air 03/23/23 09:57 Allergies Allergy/AdvReac Type Severity Reaction Status Date / Time No Known Allergies Allergy Verified 03/23/23 09:10 Home Medications Medication Instructions Recorded Confirmed Type lamotrigine 150 mg tablet 150 mg PO HS 02/14/21 03/17/23 History tamoxifen 20 mg tablet 20 mg PO DAILY 06/17/22 03/17/23 History amlodipine 10 mg tablet 10 mg PO DAILY 03/17/23 03/17/23 History dexamethasone 1 mg tablet 2 mg PO BID 03/17/23 03/17/23 History famotidine 20 mg tablet 20 mg PO BID 03/17/23 03/17/23 History lamotrigine 25 mg tablet 50 mg PO DAILY 03/17/23 03/17/23 History lithium carbonate 150 mg capsule 150 mg PO BID 03/17/23 03/17/23 History lorazepam 0.5 mg tablet 0.5 mg PO TID 03/17/23 03/17/23 History losartan 50 mg tablet 50 mg PO DAILY 03/17/23 03/17/23 History melatonin 10 mg tablet 10 mg PO HS 03/17/23 03/17/23 History metoprolol tartrate 25 mg tablet 25 mg PO BID 03/17/23 03/17/23 History ondansetron 4 mg disintegrating 8 mg translingual Q8H 03/17/23 03/20/23 History tablet sennosides 8.6 mg-docusate sodium 1 tab-cap PO BID 03/17/23 03/17/23 History 50 mg tablet (Senna-S) vortioxetine 10 mg tablet 10 mg PO DAILY 03/17/23 03/17/23 History (Trintellix) scopolamine base 1 mg over 3 days 1 patch transdermal Q3D 03/20/23 03/20/23 History transdermal patch Laboratory Tests 03/23/23 09:47 PT Pending INR Pending APTT Pending [place] 0.4 L mmol/L (0.6-1.2) Patient hx anesthesia problems: post op nausea/vomiting (has N/V now and all the time; has scopolamine and uses Zofran ODT daily) Family hx anesthesia problems: none Results Review: All pre-operative results and documents have been reviewed as part of the pre-operative evaluation. [facility] Past Medical History Medical History (Updated 03/23/23 @ 08:49 by Chance Machuca MD) Anxiety Breast cancer Insomnia Metastasis to brain Obesity Social History Social History Smoking packs per day: 0.5 Smoking cigarettes per day: 10.0 Years smoked: 30 Smoking pack-years: 15.00 Smoking status: Former smoker Tobacco type: cigarettes Second hand tobacco smoke exposure: Yes Smoking end date: 11/07/22 Alcohol intake: never Substance use: never Substance use type: does not use Living arrangements: with family Spiritual care concerns: No Anes - Eval Final PreProcedure Day of Procedure 03/23/23 10:04 Patient weight: morbidly obese Heart: regular rate and rhythm Lungs: clear to auscultation Airway: Mallampati scale class III Neurological: alert and oriented Last oral intake: >/= 8 hours ASA classification: III Emergent: no Anesthetic plan: proceed Anesthesia type and monitoring: general ETT and standard monitoring Results Review: All pre-operative results and documents have been reviewed as part of the pre-operative evaluation. Informed Consent: The patient's anesthetic plan and its attendant risks and benefits were discussed with the patient/family/POA. Questions were solicited and answers provided to the satisfaction of the patient/family/POA.
[2023-03-23] MEDS: LACTATED RINGERS 1,000 ML 30 ML IV CONT (10:32)
[2023-03-23] MEDS: diphenhydrAMINE HCl INJ 50 MG/ML VIAL 12.5 MG IV PUSH (10:33)
--- NOTE | 2023-03-23 10:52 | WPDHPUPDATE1 ---
History and Physical Update Update Date/Time: 03/23/23 10:52 History and Physical has been reviewed, including an updated exam of the patient. There are NO changes in the patient's condition. Risks, benefits, and alternatives have been discussed and questions answered. Patient agrees to proceed with procedure.
[2023-03-23] MEDS: ceFAZolin 2 GM/D5W 50 ML 2 GM/50 ML BAG IVPB (11:01)
[2023-03-23 11:09] LABS: Prothrombin Time 14.1 Seconds (11.1-14.7)
[2023-03-23 11:10] LABS: Partial Thromboplastin Time 26.3 SECONDS (22.3-36.8)
[2023-03-23] MEDS: LIDO 1%/EPINEPHRINE 1:100,000 50 ML VIAL INFILTRATE (11:24)
[2023-03-23] MEDS: HEPARIN SODIUM 1,000 UNITS/ML VIAL 1000 UNITS IV PUSH (11:24)
[2023-03-23] MEDS: HEPARIN SODIUM 5,000 UNITS/ML VIAL 5000 UNITS IRRIGATION (11:25)
--- NOTE | 2023-03-23 12:09 | W.PM.PROC2 ---
Procedure Note - Detailed Date of Procedure 03/23/23 Pre-op Diagnosis malignant neoplasm left breast, brain metastasis Post-op Diagnosis Same Procedure Performed Placement of right subclavian vein single-lumen port a catheter with intraoperative fluoroscopy Surgeon Chance Machuca MD Editorial Assistant HAMMAD Bhatt Anesthesia General Indications Patient is a 52-year-old female who unfortunately has left breast cancer which is now metastasized to her brain. She had undergone his initial course chemotherapy and after radiation treatments to her brain Mets she now presents for placement of another lora catheter for continued chemotherapy treatments. Findings None significant Description of Procedure After informed consent was obtained patient brought to the operating room she was placed supine position and then general endotracheal anesthesia was administered. Bilateral upper anterior neck and chest was then prepped and draped usual sterile fashion. Patient had previous port catheter placed in the right upper chest area there was a scar in that area. I anesthetized that area with 1% lidocaine mixed with 0.5% Marcaine 50 50 mixture with epinephrine and then excised out the old scar utilizing scalp electrocautery dissection. I then dissected down through the subcutaneous tissues until I reached the anterior pectoralis fascia and then dissected inferiorly to the incision to create subcutaneous port pocket. I then placed the patient head-down Trendelenburg position and then through this incision I then used a long 18gauge spinal needle to cannulate the right subclavian vein on the 1st pass without any difficulty. There was prompt return of dark venous appearing blood. A guidewire was advanced through the needle into the right subclavian vein subsequent down into the right atrium of the heart. Intraoperative fluoroscopy was used to visualize the tip of the guidewire which was in the correct downward position. I then advanced a dilator and breakaway sheath over the guidewire and then removed the guidewire and dilator removing leaving the sheath in place. I then advanced a single-lumen 9.6 Urdu catheter through the sheath into the right subclavian vein subsequent down into the right atrium of the heart. The sheath was then torn away leaving the catheter in place. Utilizing intraoperative fluoroscopy 1 last time I then pulled back on the catheter externals the chest wall to the tip of the catheter was in the distal superior vena cava. The catheter was then cut to the appropriate length at the skin level and attached to the Smart Port. The Smart port was then secured in subcu port pocket utilizing 3-0 Prolene sutures on 3 sides. The incision was then irrigated sterile saline solution hemostasis was good. I then accessed the port utilize a Polk needle and it aspirated blood easily. It was then flushed with Hep-Lock saline solution. I then close incision utilizing interrupted 3-0 Vicryl sutures in the subcutaneous tissues. The skin edges were then approximated utilizing a running subcuticular 4 Monocryl suture. The incision was then cleaned the skin glue was applied. Lastly I then accessed the port percutaneously utilizing the Polk needle 1 last time. Again it aspirated blood easily and then was flushed with 5000units of IV heparin. The patient tolerated the procedure well no complications. All sponges, needles, and instrument counts were correct at the end procedure. EBL was _15__cc. The patient was awakened and taken to recovery in stable and satisfactory condition. Implants 9.6 Urdu single-lumen catheter attached to Smart Port right subclavian vein. Estimated Blood Loss 15 Drains No Packing No Pathology None sent Complications No immediate complications Condition Stable Disposition PACU [facility] Billing Surgery - Charge Forward: Surgery Billing
[2023-03-23] MEDS: ONDANSETRON INJ 4 MG/2 ML VIAL IV PUSH (12:26)
== END 2023-03-23 13:32 | disposition home or self-care (01) ==
PROVIDERS: Anesthesiology; Visit Provider Surgery
PROC: (CPT 36561; principal; 2023-03-23 11:00)
DX: C50.912 Malignant neoplasm of unspecified site of left female breast (principal); C79.31 Secondary malignant neoplasm of brain; Z79.810 Long term (current) use of selective estrogen receptor modulators (SERMs); F41.9 Anxiety disorder, unspecified; Z87.891 Personal history of nicotine dependence; E66.01 Morbid (severe) obesity due to excess calories; Z68.41 Body mass index [BMI] 40.0-44.9, adult; Z92.3 Personal history of irradiation
CPT/HCPCS: 36561; 36415; 77001; 80178; 85610; 85730; C1788; J0330; J0690; J1100; J1200; J1644; J2250; J2371; J2405; J2704; J3010; J7030; J7120